=== PATIENT | male | born 1930 | race Caucasian/White ===

== ENCOUNTER 2017-02-06 07:30 | Day surgery (SDC) | payer MEDICARE ==
[~2017-02-06 07:30] MED LIST: ASPIR 8181 MG PO; ASPIRIN EC81 MG PO; CELEXA20 M2 PO; COLACE100 M1 PO; CRESTOR20 M1 PO; FEOSOL325 M1 PO; LEVAQUIN500 M1 PO; MULTIVITAMIN1 TAB PO; NORCO 5-325 TA1 EACH PO; OMEPRAZOLE20 M3 PO; PRINIVIL10 M1 PO; TERAZOSIN HCL5 MG PO; TOPROL XL50 M1 PO; TRIPLE ANTIBIO1 EAC1 TOP; XANAX0.25 M1 PO; [UNRECOGNIZED DRUG - REMARK]
== END 2017-02-06 11:35 ==
LOC: SRG 07:30 → SHSC 07:32 → ORE 10:03 → SHSC 10:35
PROC: 0HX3XZZ Transfer Left Ear Skin, External Approach (ICD-10-PCS; principal; 2017-02-06)
PROC: 0HB3XZZ Excision of Left Ear Skin, External Approach (ICD-10-PCS; 2017-02-06)
DX: C44.219 Basal cell carcinoma of skin of left ear and external auricular canal (principal); C44.229 Squamous cell carcinoma of skin of left ear and external auricular canal; F41.9 Anxiety disorder, unspecified; L57.0 Actinic keratosis; F32.9 Major depressive disorder, single episode, unspecified; I25.10 Atherosclerotic heart disease of native coronary artery without angina pectoris; E11.22 Type 2 diabetes mellitus with diabetic chronic kidney disease; I12.9 Hypertensive chronic kidney disease with stage 1 through stage 4 chronic kidney disease, or unspecified chronic kidney disease; N18.3 Chronic kidney disease, stage 3 (moderate); K21.9 Gastro-esophageal reflux disease without esophagitis; E78.5 Hyperlipidemia, unspecified; I73.9 Peripheral vascular disease, unspecified; Z95.5 Presence of coronary angioplasty implant and graft; Z79.899 Other long term (current) drug therapy; Z98.890 Other specified postprocedural states
CPT/HCPCS: J0690